=== PATIENT | male | born 1960 | race Caucasian/White ===

== ENCOUNTER 2017-01-10 08:26 | Inpatient (IN) | payer OTHER ==
[~2017-01-10] VITALS: Ht 182.9 cm; Wt 102.1 kg
[2017-01-11 23:30] VITALS: BP 154/99
[2017-01-11] MEDS ORDERED: LOPERAMIDE HCL 2 MG CAPSULE PO PRN ×2 (23:30)
[2017-01-11] MEDS ORDERED: IBUPROFEN 600 MG TABLET PO PRN (23:30)
[2017-01-11] MEDS ORDERED: LORAZEPAM 1 MG TABLET PO PRN ×2 (23:30)
[2017-01-11] MEDS ORDERED: THIAMINE HCL 200 MG/2 ML VIAL IM ONE (23:30)
[2017-01-11] MEDS ORDERED: ONDANSETRON ODT 4 MG TAB.RAPDIS SL PRN (23:30)
[2017-01-11] MEDS ORDERED: BUPRENORPHINE HCL 2 MG TAB.SUBL SL PRN (23:30)
[2017-01-11] MEDS ORDERED: ACETAMINOPHEN 325 MG TABLET PO PRN (23:30)
[2017-01-11] MEDS ORDERED: ONDANSETRON 4 MG/2 ML VIAL IM PRN (23:30)
[2017-01-11] MEDS ORDERED: DICYCLOMINE HCL 20 MG TABLET PO PRN (23:30)
[2017-01-11] MEDS ORDERED: CLONIDINE HCL 0.1 MG TABLET PO PRN (23:30)
[2017-01-11] MEDS ORDERED: LORAZEPAM 2 MG/1 ML VIAL IM PRN (23:30)
[2017-01-11] MEDS ORDERED: MIRALAX 17 GM POWD.PACK PO PRN (23:30)
--- NOTE | 2017-01-11 23:30 | NUR ---
Pre-Admission Patient was seen in intake office. Patient is noted to mildly intoxicated but very stable to continue with admission assessment. V/S noted as: 154/99, 96, 98.0, 18, 99%, 3/10 pain noted to lower back. Medication disposal explained to patient with patient able to verbalize understanding. Will continue with admission process on unit.
[2017-01-11 23:56] LABS: BASOPHILS # (AUTO) 0.2 K/uL (0.0-8.0); BASOPHILS % (AUTO) 1.6 % (0.0-2.0); EOSINOPHILS # (AUTO) 0.4 K/uL (0.0-0.7); EOSINOPHILS % (AUTO) 4.3 % (0.0-7.0); HEMOGLOBIN 16.5 G/DL (14.0-18.0); LYMPHOCYTES # (AUTO) 4.3 K/UL (0.8-4.8); LYMPHOCYTES % (AUTO) 42.3 % (20.5-51.5); MEAN CORPUSCULAR HGB CONC 34 g/dL (32.0-37.0); MONOCYTES % (AUTO) 9.8 % (0.0-11.0); NEUTROPHILS # (AUTO) 4.3 K/UL (1.8-8.9); PLATELET COUNT (AUTO) 317 K/UL (150-450); RED BLOOD CELL COUNT(AUTO) 5.51 MIL/UL (4.7-6.1); WHITE BLOOD COUNT (AUTO) 10.2 K/UL (4.0-11.2)
[2017-01-12 00:10] LABS: ALANINE AMINOTRANSFERASE 24 U/L (16-63); ALKALINE PHOSPHATASE 113 U/L (50-136); AMYLASE 24 U/L (25-115); ASPARTATE AMINOTRANSFERASE 14 U/L (15-37); BILIRUBIN,TOTAL 0.9 mg/dL (0.2-1.0); CARBON DIOXIDE 29 mmol/L (21-32); CHLORIDE 101 mmol/L (98-107); CREATININE 1.2 mg/dL (0.6-1.3); GLUCOSE 130 mg/dL (74-106); MAGNESIUM 1.9 mg/dL (1.8-2.4); POTASSIUM 3.8 mmol/L (3.5-5.1); TOTAL PROTEIN, SERUM 7.2 g/dL (6.4-8.2); UREA NITROGEN, BLOOD 9 mg/dL (7-18)
[2017-01-12 00:12] LABS: *AMPHETAMINE, URINE NEGATIVE (NEGATIVE); *BARBITURATE, URINE NEGATIVE (NEGATIVE); *CANNABINOID, URINE NEGATIVE (NEGATIVE); *COCCAINE, URINE NEGATIVE (NEGATIVE); *OPIATE, URINE POSITIVE (NEGATIVE); *PHENCYCLIDINE SCREEN,URINE NEGATIVE (NEGATIVE)
[2017-01-12 00:18] LABS: ETHANOL < 3 MG/DL (0-0)
[2017-01-12] MEDS ORDERED: LORAZEPAM 1 MG TABLET PO ONE (00:30)
[2017-01-12] MEDS ORDERED: DIAZ5TAB4 PO (00:41)
[2017-01-12] MEDS ORDERED: ACET1TAB PO (00:41)
[2017-01-12] MEDS ORDERED: AZIT250T6 PO (00:41)
[2017-01-12] MEDS ORDERED: ACET500C4 PO (00:41)
[2017-01-12] MEDS ORDERED: OXYC-133 PO (00:41)
[2017-01-12 00:45] VITALS: BP 127/84
--- NOTE | 2017-01-12 00:45 | NUR ---
Admission Patient is a 56 year old male from [place], admitted to [facility] to receive treatment for his Opioid and Benzo Dependence. Patient was escorted on to unit by male LUMBER CARRIER where body check was rendered. Skin check rendered by Nurse with skin noted intact with Spinal Cord Stimulator implanted to left buttock. Patient was able to provide Urine drug screen upon arrival to unit. Patient verbalizes no known allergies. Height noted as 60 and weight noted as 225lbs. Patient is ambulatory with no assistance needed. Patient is noted to be mildly visibly intoxicated. Patient is able to answer questions with no issues noted. Breathing is even and non labored with no signs of SOB. BUE and BLE noted to be WNL with no edema noted. Lung sounds clear with no cough noted. Bowel sounds are active in all 4 quadrants with LBM noted 01/11/17. Patient verbalizes past medical history as L4-L5 Ruptured disc, Lumbar Radiculopathy, Anxiety, Lymphoma, Spinal Cord Stimulator placed in Left Buttock for pain management. Home medications reconciled with patient noted to be prescribed a Zpack for possible pneumonia. Patient verbalizes no cough, fever, or discomfort related to infection. Patient was seen by his oncologist recently with X-ray rendered with possible infection noted. Patient has taken 2 of the 6 tabs ordered and wishes to continue with medications as prescribed. No history of Seizure noted. Patient denies any suicidal ideations. He describes his usage as: 1. Oxycodone, patient was first started on Opioids in 2013, but receiving Oxycodone for one year, 10-325mg x6 tab PO daily, last dose take 01/11/17 taking 6 tabs total for the day 2.Oxycontin, for the past year, taking 30mg 1 tab PO daily, with last dose taken 01/11/17 1 tab 3. Valium for the past 6 years, taking 5mg PO 3x a week with last dose noted to be 01/11/17 5mg x2 4. ETOH- Wine, drinking 1 liter x2 days with last noted to be 01/08/17. Patient states drinking is not my thing. I did it because I ran out of my pills. It was all I could think of doing. 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 Admission CIWA noted to be 0 and COWS noted to be 2. All information reviewed with Dr. Ortiz with Labs to be rendered, PRN medications available for increased signs and symptoms. Orders for 2mg of Ativan to be given for increased anxiety. Will continue plan of care as ordered.
[2017-01-12] MEDS ORDERED: LORAZEPAM 1 MG TABLET ONE (01:04)
[2017-01-12 04:53] VITALS: BP 126/71
--- NOTE | 2017-01-12 07:17 | NUR ---
End of Shift Patient is in bed sleeping. Breathing even and non labored. No signs of pain or discomfort noted. Patient is a 56 year old male admitted 01/11/17 for Opioid and Benzo Dependence. No known allergies, wishes to be full code, following a regular diet, placed on fall and seizure precautions, skin noted intact. Past medical history noted as L4-L5 rupture, Lymphoma, Anxiety, Lumbar Radiculopathy, Spinal Cord Stimulator implanted in Left Buttock for pain management. This is patients first time in treatment. Upon admission COWS noted to be 2 and CIWA 0. Ativan 2mg given as ordered per MD. Patient slept a total of 5 hours. All needs attended to promptly. Will endorse to continue plan of care as ordered. Addendum: 01/12/17 at 0718 by ED GANT LVN Amended: Links added.
--- NOTE | 2017-01-12 07:45 | NUR ---
BEGINNING OF SHIFT Patient endorsement report received from shift mechanic nurse, all pertinent information discussed. patient is a 56 year old Male admitted on: 01/11/2017 with admitting Dx: Opiate/BZO dependence, and substance use history of: etoh x2days. Patient currently under close observation, will monitor cow/ciwa score closely. Per shift mechanic patient patient received no PRNs during shift mechanic. patient with last ciwa score of: 0 and cow score of: 2. patient received awake, alert and oriented x4, educated regarding plan of care for the day and medication regimen with good verbal understanding. Safety measures in place. call light kept with in reach, will continue to monitor.
[2017-01-12 08:04] VITALS: BP 137/89
[2017-01-12] MEDS: MULTIVITAMINS,THERAPEUTIC TABLET PO SCH (08:35)
[2017-01-12] MEDS: METHOCARBAMOL 750 MG TABLET PO PRN (08:50)
--- NOTE | 2017-01-12 08:50 | NUR ---
PRN MOTRIN/ROBAXIN Patient c/o 10/16 pain to right leg, and muscle aches, patient administered Motrin and Robaxin as ordered, will monitor effectiveness of medication.
[2017-01-12] MEDS ORDERED: BUPRENORPHINE HCL 2 MG TAB.SUBL SL SCH (09:00)
[2017-01-12] MEDS ORDERED: TUBERCULIN,PURIF.PROT.DERIV. 5 TU/0.1 ML TEST ID ONE (09:00)
[2017-01-12] MEDS ORDERED: THIAMINE HCL 100 MG TABLET PO SCH (09:00)
[2017-01-12] MEDS ORDERED: FOLIC ACID 1 MG TABLET PO SCH (09:00)
--- NOTE | 2017-01-12 09:50 | NUR ---
MOTRIN/ROBAXIN REASSESSMENT Patient reports medication effective, current pain level is 3/10, tolerable as per patient.
--- NOTE | 2017-01-12 11:24 | NUR ---
PRN SUBUTEX Patient presented with: heart rate of 81, flushed, difficulty sitting still, dilated pupils, severe bone and joint aches, nasal stuffiness, loose stool, yawning, irritable,e and anxiety with cow score of: 13, Per MD orders patient to received PRN Subutex, medication administered as ordered, will monitor effectiveness of medication.
--- NOTE | 2017-01-12 11:54 | NUR ---
SUBUTEX REASSESSMENT Medication effective, cow score decreased to 11 presenting with: heart rate of 86, mild sweats, difficulty sitting still, dilated pupils, severe bone and joint aches, nasal stuffiness, stomach cramps, yawning, irritalb,e and anxiety with cow score of: 11, will continue to monitor closely, safety measures in place. call light with in reach, will continue to monitor.
[2017-01-12 13:00] VITALS: BP 129/83
[2017-01-12] MEDS ORDERED: AZITHROMYCIN 250MG PO SCH ×2 (13:00→13:36)
[2017-01-12] MEDS: LIDOCAINE 5% PATCH TD SCH (13:54)
[2017-01-12] MEDS: BUPRENORPHINE HCL 2 MG TAB.SUBL SL SCH ×3 (13:54→21:56)
[2017-01-12] MEDS: ACETAMINOPHEN 325 MG TABLET PO SCH ×2 (14:00→21:56)
[2017-01-12] MEDS: AZITHROMYCIN 250MG PO SCH (15:27)
[2017-01-12 17:30] VITALS: BP 137/85
--- NOTE | 2017-01-12 18:51 | NUR ---
END OF SHIFT Patient alert and oriented x4, vital signs were stable during shift. Patient compliant with therapeutic plan of care during shift. Patient with admitting Dx: opiate dependence. Patient was started on a 5 day Subutex taper during shift, first dose administered at 1124. Detox medication well tolerated, no ASE noted. During shift patient was administered PPD to left f/a Procedure well tolerated. Per MD patient also ok to continue antibiotic (z-pack), ATB administered as ordered, well tolerated, no ASE noted. Patient afebrile during shift, encouraged adequate PO fluid intake as tolerated. 0900 assessment patient presented with: bone and joint aches, irritable and anxiety with cow score of: 4 and ciwa score of: 4; 1124 patient presented with: heart rate of 81, flushed, difficulty sitting still, dilated pupils, severe bone and joint aches, nasal stuffiness, loose stool, yawning, irritable,e and anxiety with cow score of: 13 and ciwa score of: 6; 1300 assessment patient presented with: heart rate of 86, mild sweats, difficulty sitting still, dilated pupils, severe bone and joint aches, nasal stuffiness, stomach cramps, yawning, irritable,e and anxiety with cow score of: 11 and ciwa score of: 6. 1700 assessment patient presented with: c/o chills, barely sweating, dilated pupils, moist eyes, stomach cramps, and anxiety with cow score of: 9 and ciwa score of: 5. Detox medication effective at reducing withdrawal symptoms. During shift patient received PRN: Motrin and Robaxin, medications were effective, one hour post administration. Patient compliant with plan of care. encouraged to attend group therapies/sessions to learn new coping skills to prevent relapse. Patient denies SI/HI. Patient encouraged adequate PO fluid intake as tolerated. Patient encouraged adequate PO fluid intake as tolerated. Safety measures in place. call light kept with in reach, safety measures in place. will continue to monitor closely. patient endorsed to horizontal resaw operator nurse, all pertinent information discussed.
--- NOTE | 2017-01-12 19:15 | NUR ---
Start of Shift Note: Patient is a 56 y/o male admitted for Opiate dependence. Patient has past medical history of L4-L5 rupture, Lymphoma, Anxiety, Lumbar Radiculopathy, and pt has a Spinal Cord Stimulator implanted in Left Buttock for pain management. No seizure history noted. Patietn is on a regular diet with no known food and drug allergies noted. Full Code status. Patient is on a 5-day Subutex taper and tolerating well. Last COWS 9 CIWA 5. Patient was given PRN Robaxin & Motrin for back pain and was effective. Received pt alert & oriented x4. No shortness of breath noted. Respiration even & unlabored. Abdomen soft & non-distended. No nausea/vomiting noted. Patient complained of 8/10 leg pain, anxiety & sweating. No hand tremors noted. Pt denies any hallucinations. Safety measures in place. Bed locked in lowest position. Both side rails up. Call light within pt's reach. Will continue to monitor patient.
[2017-01-12 20:00] VITALS: BP 112/82
[2017-01-12] MEDS: GABAPENTIN 300 MG CAPSULE PO SCH (21:56)
--- NOTE | 2017-01-12 21:56 | NUR ---
PRN Ativan 1mg Patient presented with moderate anxiety, slight agitation & sweating. Hand tremors felt but not seen. CIWA 6 noted. PRN Ativan 1mg PO administered as ordered. Will monitor for effectiveness of medication.
[2017-01-12] MEDS: MAG HYDROX/AL HYDROX/SIMETH 30 ML LIQUID UDC PO PRN (22:01)
--- NOTE | 2017-01-12 22:01 | NUR ---
PRN Maalox Patient complains of heartburn. PRN Maalox PO administered as ordered. Will continue to monitor for effectiveness of medication.
--- NOTE | 2017-01-12 23:01 | NUR ---
PRN Reassessment Patient verbalized medication to be effective. Pt denies any heartburn at this time. Patient appears less anxious and no sweating noted. Patient lying in bed and appears calm. safety measures in place. Will continue to monitor patient.
[2017-01-13] VITALS: BP 106/69
[2017-01-13 04:00] VITALS: BP 123/84
--- NOTE | 2017-01-13 07:11 | NUR ---
End of Shift Note: Patient had an uneventful night. Pt continues on his Subutex taper and tolerating well. Last COWS 4 CIWA 3 @ 2300. Pt received PRN Ativan for symptoms of withdrawal and Maalox for heartburn, both medications were effective. Patient remained compliant with medications. Patient is alert & oriented x4. No s/s of distress noted. Patient remained stable and vitals WNL. Pt was able to sleep for a total of 7 hours. Pt consumed 796 ml of fluids. Voided 2x with no bowel movement. Encourage pt to increase fluid intake. All needs attended & met. Safety measures in place. Will continue to monitor patient.
--- NOTE | 2017-01-13 07:45 | NUR ---
BEGINNING OF SHIFT Patient endorsement report received from overnight associate nurse, all pertinent information discussed. patient is a 56 year old Male admitted on: 01/11/2017 with admitting Dx: Opiate/BZO dependence, and substance use history of: etoh x2days. Patient currently under close observation, will monitor cow/ciwa score closely. Patient was started on a 5 day Subutex taper as ordered and is scheduled to begin day 2 of taper. Per overnight associate patient patient received PRN: Ativan during overnight associate, medication was effective as per overnight associate. patient with last ciwa score of: 4 and cow score of: 3. Patient slept for 7 hours. patient received awake, alert and oriented x4, educated regarding plan of care for the day and medication regimen with good verbal understanding. Safety measures in place. call light kept with in reach, will continue to monitor.
[2017-01-13 08:04] VITALS: BP 135/89
[2017-01-13] MEDS: GABAPENTIN 300 MG CAPSULE PO SCH ×3 (08:44→21:01)
[2017-01-13] MEDS: MULTIVITAMINS,THERAPEUTIC TABLET PO SCH (08:44)
[2017-01-13] MEDS: ACETAMINOPHEN 325 MG TABLET PO SCH ×3 (08:44→21:01)
[2017-01-13] MEDS: BUPRENORPHINE HCL 2 MG TAB.SUBL SL SCH ×3 (08:44→21:01)
[2017-01-13] MEDS: AZITHROMYCIN 250MG PO SCH (08:45)
[2017-01-13] MEDS: LIDOCAINE 5% PATCH TD SCH (08:46)
[2017-01-13 13:45] VITALS: BP 135/89
[2017-01-13] MEDS: KETOROLAC TROMETHAMINE 30 MG INJ IM PRN ×2 (14:24→21:02)
--- NOTE | 2017-01-13 14:24 | NUR ---
PRN TORADOL Patient c/o right leg pain 11/16, provided with non pharmacological interventions with no relief, administered Toradol injection as ordered, will monitor effectiveness of medication.
--- NOTE | 2017-01-13 15:24 | NUR ---
TORADOL REASSESSMENT Patient reports medication effective at reducing pain, current pain level 3/10 tolerable as per patient, will continue to monitor closely. safety measures in place.
[2017-01-13 17:00] VITALS: BP 128/88
--- NOTE | 2017-01-13 19:10 | NUR ---
END OF SHIFT Patient alert and oriented x4, vital signs were stable during shift. Patient compliant with therapeutic plan of care during shift. Patient with admitting Dx: opiate dependence. Patient continues on a 5 day Subutex taper as ordered, well tolerated, patient currently on day 2 of his taper. Patient continues on ATB as ordered, well tolerated, no ASE noted. Patient afebrile during shift, encouraged adequate PO fluid intake as tolerated. 0900 assessment patient presented with: c/o chills, mild bone and joint aches, nasal stuffiness, stomach cramps, yawning, mild anxiety, barely sweating, and mild agitation cow score of: 6 and ciwa score of:3; 1300 assessment patient presented with: heart rate of 83, c/o chills, severe bone and joint aches, mild anxiety, barely sweating, with cow score of: 6 and ciwa score of: 3; 1700 assessment patient presented with: heart rate of 84, c/o chills, severe bone and joint aches, mild anxiety, barely sweating, with cow score of:6 and ciwa score of: 3 Detox medication effective at reducing withdrawal symptoms. During shift patient received PRN: Toradol injection as ordered, medication effective, one hour post administration. Patient compliant with plan of care. encouraged to attend group therapies/sessions to learn new coping skills to prevent relapse, noted attending and participating. Patient denies SI/HI. Patient encouraged adequate PO fluid intake as tolerated. Patient encouraged adequate PO fluid intake as tolerated. Safety measures in place. call light kept with in reach, safety measures in place. will continue to monitor closely. patient endorsed to shift superintendent nurse, all pertinent information discussed.
--- NOTE | 2017-01-13 19:15 | NUR ---
Start of Shift Note: Patient is a 56 y/o male admitted for Opiate dependence. Patient has past medical history of L4-L5 rupture, Lymphoma, Anxiety, Lumbar Radiculopathy, and pt has a Spinal Cord Stimulator implanted in Left Buttock for pain management. No seizure history noted. Patient is on a regular diet with no known food and drug allergies noted. Full Code status. Patient is on a 5-day Subutex taper and tolerating well. Last COWS 9 CIWA 5. Patient was given PRN Toradol for leg pain and was effective. Received pt alert & oriented x4. Patient is ambulatory with a steady gait. No shortness of breath noted. Respiration even & unlabored. Abdomen soft & non-distended. No nausea/vomiting noted. Patient complained of 8/10 leg pain & back pain, anxiety & sweating. No hand tremors felt but not seen. Pt denies any hallucinations. Safety measures in place. Bed locked in lowest position. Both side rails up. Call light within pt's reach. Will continue to monitor patient.
[2017-01-13 20:00] VITALS: BP 140/91
[2017-01-13] MEDS: diphenhydrAMINE 50 MG CAPSULE PO PRN (21:01)
--- NOTE | 2017-01-13 21:01 | NUR ---
PRN Administration Patient is unable to fall asleep d/t complains of 8/10 leg and back pain. PRN Toradol IM and Benadryl administered as ordered. Will monitor for effectiveness of medication.
[2017-01-14] VITALS: BP 118/76
--- NOTE | 2017-01-14 07:14 | NUR ---
End of Shift Note: Patient had an uneventful night. Pt continues on his Subutex taper and tolerating well. Last COWS 5 CIWA 4. Pt received PRN Toradol for pain & Benadryl for sleep, both medications were effective. Patient remained compliant with medications. Patient is alert & oriented x4. No s/s of distress noted. Patient remained stable and vitals WNL. Pt was able to sleep for a total of 8 hours. Pt consumed 710 ml of fluids. Voided 2x with no bowel movement. Encourage pt to increase fluid intake. All needs attended & met. Safety measures in place. Will continue to monitor patient.
--- NOTE | 2017-01-14 07:15 | NUR ---
Start of Shift Endorsement received from nightshift nurse. Pt is 56 y/o male admitted for opiate dependence. Pt has been placed on a 5 day Subutex taper. Pt is tolerating the taper AEB COWS5 and CIWA 4 at 0400. Pt received PRN Toradol and Benadryl. Pt reports sleeping 8 hours. PT is alert and oriented x4. Pt is in STABLE condition at this time. Remains compliant with medication and diet regimen. All needs have been met, All safety measures in place per hospital policy. Bed in lowest position, side rails up x2, call-light within reach. Will continue to monitor
[2017-01-14 08:00] VITALS: BP 141/81
[2017-01-14] MEDS: ACETAMINOPHEN 325 MG TABLET PO SCH ×3 (08:33→21:37)
[2017-01-14] MEDS: MULTIVITAMINS,THERAPEUTIC TABLET PO SCH (08:34)
[2017-01-14] MEDS: GABAPENTIN 300 MG CAPSULE PO SCH ×3 (08:34→21:37)
[2017-01-14] MEDS: LIDOCAINE 5% PATCH TD SCH (08:35)
[2017-01-14] MEDS: AZITHROMYCIN 250MG PO SCH (08:43)
[2017-01-14] MEDS ORDERED: BUPRENORPHINE HCL 2 MG TAB.SUBL SL SCH (09:00)
[2017-01-14 09:06] LABS: HEPATITIS B SURFACE AG Negative (Negative)
[2017-01-14 12:00] VITALS: BP 133/85
[2017-01-14] MEDS: MAG HYDROX/AL HYDROX/SIMETH 30 ML LIQUID UDC PO PRN (14:05)
[2017-01-14] MEDS: BUPRENORPHINE HCL 2 MG TAB.SUBL SL SCH ×2 (14:05→21:38)
[2017-01-14 16:00] VITALS: BP 125/88
--- NOTE | 2017-01-14 18:57 | NUR ---
End of Shift Endorsement given to nightshift nurse. Pt is 56 y/o male admitted for opiate dependence. Pt has been placed on a 5 day Subutex taper. Pt is tolerating the taper AEB COWS 5 and CIWA 3 at 1600. Pt did not receive any PRN medications. Pt participated in groups and activities. Educated pt on S/E of medications and diet regimen. Pt reports sleeping 8 hours. PT is alert and oriented x4. Pt is in STABLE condition at this time. Remains compliant with medication and diet regimen. All needs have been met, All safety measures in place per hospital policy. Bed in lowest position, side rails up x2, call-light within reach. Will continue to monitor
[2017-01-14 20:00] VITALS: BP 119/88
--- NOTE | 2017-01-14 20:00 | NUR ---
Start of Shift Received 56 y/o male px. Admitted for opiate and benzo dependence. Pt has been placed on a 5 day Subutex taper. NKA. Full code. On regular diet. Px is alert and oriented x4. During the rounds , complained of LLE pain 6/10, and Ask for pill to help him sleep. Pt is in STABLE condition at this time. COWS 6, CIWA 7. Remains compliant with medication and diet regimen. All safety measures in place per hospital policy. Bed in lowest position, side rails up x2, call-light within reach. We'll continue to monitor.
[2017-01-14] MEDS: diphenhydrAMINE 50 MG CAPSULE PO PRN (21:37)
[2017-01-14] MEDS: METHOCARBAMOL 750 MG TABLET PO PRN (21:37)
--- NOTE | 2017-01-14 21:37 | NUR ---
PRN Robaxin and Benadryl Px complained of pain on LLE 6, and requested for pill to help him sleep. Robaxin 750 mg/tab, 1 tab and Benadryl 50 mg/cap, 1 cap given PO as PRN meds. We'll continue to monitor.
--- NOTE | 2017-01-14 22:40 | NUR ---
Pain Reassessment Pain reassessment was deferred due to the px is sleeping at this moment. Respirations are even and unlabored at 18 cpm. We'll continue to monitor.
[2017-01-15] VITALS (7 sets, daily range): BP systolic 116–145; BP diastolic 80–94
--- NOTE | 2017-01-15 04:00 | NUR ---
COWS and CIWA deferred COWS and CIWA deferred at 0000 and 0400 due to the px is sleeping, to assess if the px is awake per doctor's order. We'll continue to monitor.
--- NOTE | 2017-01-15 07:07 | NUR ---
End of Shift 56 y/o male px. Admitted for opiate and benzo dependence. Pt has been placed on a 5 day Subutex taper. NKA. Full code. On regular diet. Px is alert and oriented x4. During the shift, complained of LLE pain 6/10, Ask for pill to help him sleep. Robaxin 750 mg/tab, 1 tab and Benadryl 50 mg/cap, 1 cap given PO as PRN meds. Oral intake of 2,200ml, voided 2x, no BM. Slept for 6 hrs. Remains compliant with medication. All safety measures in place per hospital policy. Bed in lowest position, side rails up x2, call-light within reach. We'll continue to monitor
--- NOTE | 2017-01-15 08:15 | NUR ---
START OF SHIFT NOTE Received report from night nurse, 56 year old male admitted for opiate and benzo dependence. Pt cont on a 5 day Subutex taper. Pt reported PMH of L4,L5, anxiety, lumber radiculopathy, Spinal cord stimulator on Lt buttock. Per endorsement pt received PRN Benadryl, Robaxin effective per night nurse, last COWS was6, CIWA-7, slept for 6 hours. Patient received awake, alert and oriented x4, educated regarding plan of care for the day and medication regimen with good verbal understanding. Safety measures in place. call light kept with in reach, will continue to monitor.
[2017-01-15] MEDS: ACETAMINOPHEN 325 MG TABLET PO SCH ×3 (08:37→21:24)
[2017-01-15] MEDS: MULTIVITAMINS,THERAPEUTIC TABLET PO SCH (08:37)
[2017-01-15] MEDS: GABAPENTIN 300 MG CAPSULE PO SCH ×3 (08:37→21:24)
[2017-01-15] MEDS: BUPRENORPHINE HCL 2 MG TAB.SUBL SL SCH ×3 (08:38→21:33)
[2017-01-15] MEDS: LIDOCAINE 5% PATCH TD SCH (08:38)
[2017-01-15] MEDS: AZITHROMYCIN 250MG PO SCH (08:38)
[2017-01-15] MEDS: MAG HYDROX/AL HYDROX/SIMETH 30 ML LIQUID UDC PO PRN ×2 (16:39→21:25)
--- NOTE | 2017-01-15 16:39 | NUR ---
PRN MAALOX Pt c/o of heat burn, Pt provided non pharmacological intervention with no relief, Administered PRN Maalox 30ml Po as ordered. Will cont to monitor and reassess.
--- NOTE | 2017-01-15 17:39 | NUR ---
MAALOX REASSESSMENT Per pt Maalox was effective in alleviating heart burn.
--- NOTE | 2017-01-15 19:13 | NUR ---
END OF SHIFT NOTE Pt cont on 5 days Subutex taper. Pt received PRN Maalox for heat burn noted to be effective. Pt compliant with medication and plan of care. Pt attend group and activity. Encouraged Po fluids as ordered. Pt's last COWS score was 4,CIWA-2, at 1600. Vital signs WNL. All needs met. Safety measures in place, call light within reach. Pt endorsed to night nurse in stable condition.
--- NOTE | 2017-01-15 20:00 | NUR ---
START OF SHIFT Received report from day shift nurse. Pt attended a group meeting and returned to the room after. He is a 56 yo male admitted to [facility] on 01/12 for Opioid and ETOH dependence. He is A&O x4 and ambulatory. NKA, full code status, and on a regular diet. He has a PMH of lymphoma, anxiety, L4-L5 rupture, lumbar radiculopathy, spinal cord stimulator placement. On admission he reported using oxycodone 10-325mg 6 tabs per day, oxycontin 30mg per day, valium 5mg 3x/week, and wine 1 liter for two days. He is ordered a 5 day subutex taper. Pt reports left leg pain and anxiety. He is observed with mild hand tremors. Fall and seizure precautions ordered. Bed is down with call light in reach.
[2017-01-15] MEDS: BACLOFEN 10 MG TABLET PO SCH (21:23)
[2017-01-15] MEDS: diphenhydrAMINE 50 MG CAPSULE PO PRN (21:25)
[2017-01-15] MEDS: KETOROLAC TROMETHAMINE 30 MG INJ IM PRN (21:29)
--- NOTE | 2017-01-15 21:30 | NUR ---
PRN Toradol, Mylanta, and Benadryl Pt reports left leg pain 8/10, acid indigestion, and inability to sleep. PRN Toradol, Mylanta, and Benadryl administered.
--- NOTE | 2017-01-15 21:48 | NUR ---
PRN Clonidine Pt reports moderate anxiety. He is observed with mild hand tremors. B/P 142/92. PRN Clonidine administered.
--- NOTE | 2017-01-15 22:00 | NUR ---
PRN Toradol and Mylanta reassessment PRN Toradol effective. Pt reports pain level is reduced to 4/10. He states, "I can feel I'm becoming more comfortable." PRN Mylanta effective. He reports that acid indigestion is relieved.
--- NOTE | 2017-01-15 22:48 | NUR ---
PRN Benadryl and Clonidine reassessment PRN Clonidine and Benadryl effective. Pt is lying in bed resting with eyes closed. Respirations even and unlabored. Vital signs obtained. B/P 132/80 and HR 80.
[2017-01-16] VITALS: BP 124/76
--- NOTE | 2017-01-16 | NUR ---
0000 COWS and CIWA deferred COWS and CIWA ordered Q4HWA. Pt is lying in bed resting with eyes closed. Respirations even and unlabored. Vital signs obtained. Safety measures in place.
--- NOTE | 2017-01-16 | NUR ---
0000 COWS and CIWA deferred COWS and CIWA ordered Q4HWA. Pt is lying in bed resting with eyes closed. Vital signs obtained. Safety measures in place.
--- NOTE | 2017-01-16 04:00 | NUR ---
0400 Vitals refused/COWS and CIWA deferred Pt refused to be woken for 0400 vitals. He is lying in bed resting with eyes closed. Respirations even and unlabored. COWS and CIWA ordered Q4HWA. Safety measures in place.
--- NOTE | 2017-01-16 07:07 | NUR ---
END OF SHIFT Report provided to day shift nurse. Pt is lying in bed resting. He is a 56 yo male admitted to [facility] on 01/12 for Opioid and ETOH dependence. He is A&O x4 and ambulatory. NKA, full code status, and on a regular diet. He has a PMH of lymphoma, anxiety, L4-L5 rupture, lumbar radiculopathy, spinal cord stimulator placement. On admission he reported using oxycodone 10-325mg 6 tabs per day, oxycontin 30mg per day, valium 5mg 3x/week, and wine 1 liter for two days. 5 day subutex taper started 01/12. Pt is compliant with treatment. He was experiencing pain and anxiety. PRN Clonidine, Mylanta, Toradol, and Benadryl. Last COWS 5 and CIWA 4. He drank 2210 and slept for 7 hours. Fall and seizure precautions oredered. Bed is down with call light in reach.
--- NOTE | 2017-01-16 07:53 | NUR ---
START OF SHIFT NOTE Received report from night nurse, 56 year old male admitted for opiate and benzo dependence. Pt cont on a 5 day Subutex taper. Pt reported PMH of L4,L5, anxiety, lumber radiculopathy, Spinal cord stimulator on Lt buttock. Per endorsement pt received PRN Benadryl,Mylanta,Toradol, Clonidine effective per night nurse, last COWS was 5, CIWA-4, slept for 7 hours. Patient received awake, alert and oriented x4, educated regarding plan of care for the day and medication regimen with good verbal understanding. Safety measures in place. call light kept with in reach, will continue to monitor.
[2017-01-16 08:00] VITALS: BP 133/95
[2017-01-16] MEDS: LIDOCAINE 5% PATCH TD SCH (08:13)
[2017-01-16] MEDS: GABAPENTIN 300 MG CAPSULE PO SCH ×3 (08:13→21:27)
[2017-01-16] MEDS: MULTIVITAMINS,THERAPEUTIC TABLET PO SCH (08:13)
[2017-01-16] MEDS: BACLOFEN 10 MG TABLET PO SCH ×3 (08:13→21:27)
[2017-01-16] MEDS: ACETAMINOPHEN 325 MG TABLET PO SCH ×3 (08:13→21:27)
[2017-01-16] MEDS ORDERED: BUPRENORPHINE HCL 2 MG TAB.SUBL SL SCH (09:00)
[2017-01-16 12:00] VITALS: BP 128/92
[2017-01-16] MEDS ORDERED: METH-406 PO (13:49)
[2017-01-16] MEDS ORDERED: LIDO30AD10 TD (13:49)
[2017-01-16] MEDS ORDERED: ACET325T53 PO (13:49)
[2017-01-16] MEDS ORDERED: DIPH50CA37 PO (13:49)
[2017-01-16] MEDS ORDERED: IBUP-1955 PO (13:49)
[2017-01-16] MEDS ORDERED: DICY20TA28 PO (13:49)
[2017-01-16] MEDS ORDERED: GABA-534 PO (13:49)
[2017-01-16 16:00] VITALS: BP 125/91
--- NOTE | 2017-01-16 19:04 | NUR ---
END OF SHIFT NOTE Pt completed his 5 days Subutex taper tolerated well. Pt did not receive any PRN. Pt compliant with medication and plan of care. Pt attend group and activity. Encouraged Po fluids as ordered. Pt's last COWS score was 1,CIWA-1, at 1600. Vital signs WNL. Pt scheduled for discharge in AM. Skin intact warm and dry to touch. All needs met. Safety measures in place, call light within reach. Pt endorsed to night nurse in stable condition.
[2017-01-16 20:00] VITALS: BP 139/87
--- NOTE | 2017-01-16 20:05 | NUR ---
START OF SHIFT Report received from day shift nurse. Pt attended a group meeting and returned to the room after. He is a 56 yo male admitted to [facility] on 01/12 for Opioid and ETOH dependence. He is A&O x4 and ambulatory. NKA, full code status, and on a regular diet. He has a PMH of lymphoma, anxiety, L4-L5 rupture, lumbar radiculopathy, spinal cord stimulator placement. On admission he reported using oxycodone 10-325mg 6 tabs per day, oxycontin 30mg per day, valium 5mg 3x/week, and wine 1 liter for two days. Subutex taper complete and he is scheduled for discharge tomorrow. Pt reports left leg pain. No other s/s of withdrawal noted. Fall and seizure precautions ordered. Bed is down with call light in reach.
[2017-01-16] MEDS: MAG HYDROX/AL HYDROX/SIMETH 30 ML LIQUID UDC PO PRN (21:26)
[2017-01-16] MEDS: diphenhydrAMINE 50 MG CAPSULE PO PRN (21:27)
[2017-01-16] MEDS: KETOROLAC TROMETHAMINE 30 MG INJ IM PRN (21:28)
--- NOTE | 2017-01-16 21:28 | NUR ---
PRN Toradol, Mylanta, and Benadryl Pt reports left leg pain 8/10, acid indigestion, and inability to sleep. PRN Toradol, Mylanta, and Benadryl administered.
--- NOTE | 2017-01-16 22:28 | NUR ---
PRN Toradol, Mylanta, and Benadryl reassessment Medications effective. Pt is lying in bed resting with eyes closed. Respirations even and unlabored. Safety measures in place.
[2017-01-17] VITALS: BP 108/55
--- NOTE | 2017-01-17 | NUR ---
0000 COWS and CIWA deferred COWS ordered Q4HWA. Pt is lying in bed resting with eyes closed. Vital signs obtained. Respirations even and unlabored. Safety measures in place.
--- NOTE | 2017-01-17 07:02 | NUR ---
END OF SHIFT Report provided to day shift nurse. Pt is lying in bed resting. He is a 56 yo male admitted to [facility] on 01/12 for Opioid and ETOH dependence. He is A&O and ambulatory. NKA, full code status, and on a regular diet. He has a PMH of lymphoma, anxiety, L4-L5 rupture, lumbar radiculopathy, spinal cord stimulator placement. On admission he reported using oxycodone 10-325mg 6 tabs per day, oxycontin 30mg per day, valium 5mg 3x/week, and wine 1 liter for two days. He completed a subutex taper and is scheduled for discharge today. PRN Toradol, Mylanta, and Benadryl administered. Last COWS 2 and CIWA 1. He drank 2200mL and slept for 7 hours. Fall and seizure precautions in place.
--- NOTE | 2017-01-17 07:29 | NUR ---
START OF SHIFT NOTE: Received report from awake overnight counselor nurse. Pt is 56 y/o male admitted for opiate dependence. Pt completed a 5 day Subutex taper. Tolerated well. To be discharged today. Pt is alert and oriented X4. Color good, skin warm and dry. Respirations even and unlabored. Safety precautions observed. Call light within reach.
[2017-01-17] MEDS: MULTIVITAMINS,THERAPEUTIC TABLET PO SCH (08:32)
[2017-01-17] MEDS: GABAPENTIN 300 MG CAPSULE PO SCH (08:32)
[2017-01-17] MEDS: BACLOFEN 10 MG TABLET PO SCH (08:32)
[2017-01-17] MEDS: ACETAMINOPHEN 325 MG TABLET PO SCH (08:32)
[2017-01-17] MEDS: LIDOCAINE 5% PATCH TD SCH (09:00)
--- NOTE | 2017-01-17 09:00 | NUR ---
VSS Discharge papers and medication bag signed.
[2017-01-17 09:07] VITALS: BP 140/80
--- NOTE | 2017-01-17 10:57 | NUR ---
Pt discharged in stable condition with all valuables, belongings and medications. Denies SI/HI. To airport via [employer] private car.
== END 2017-01-17 09:57 | disposition other institution (70) | DRG 895 ==
LOC: SRC 01-11 23:18
PROVIDERS: ADMIT Internal Medicine; ATTEND Internal Medicine
PROC: HZ2ZZZZ Detoxification Services for Substance Abuse Treatment (ICD-10-PCS; principal; 2017-01-11)
PROC: HZ41ZZZ Group Counseling for Substance Abuse Treatment, Behavioral (ICD-10-PCS; 2017-01-12)
PROC: HZ31ZZZ Individual Counseling for Substance Abuse Treatment, Behavioral (ICD-10-PCS; 2017-01-13)
DX: F11.23 Opioid dependence with withdrawal (principal); J18.9 Pneumonia, unspecified organism; C83.00 Small cell B-cell lymphoma, unspecified site; F10.10 Alcohol abuse, uncomplicated; I15.9 Secondary hypertension, unspecified; Y90.0 Blood alcohol level of less than 20 mg/100 ml; Z96.89 Presence of other specified functional implants; Z83.3 Family history of diabetes mellitus; Z80.9 Family history of malignant neoplasm, unspecified; Z82.49 Family history of ischemic heart disease and other diseases of the circulatory system; G89.4 Chronic pain syndrome; M51.17 Intervertebral disc disorders with radiculopathy, lumbosacral region; F41.9 Anxiety disorder, unspecified; R73.9 Hyperglycemia, unspecified; F13.90 Sedative, hypnotic, or anxiolytic use, unspecified, uncomplicated
CPT/HCPCS: 36415; 70030-TC; 80307; 80346; 80361; 83735; 85025; 86580; 86592; 86705; 86803; 87340; 87806; G0480; J1885; Q0163